=== PATIENT | male | born 1955 | race Caucasian/White ===

== ENCOUNTER 2016-07-12 14:18 | Emergency (ER) | payer OTHER ==
--- NOTE | 2016-07-12 15:38 | DIAGNOSTIC IMAGING REPORT ---
PROCEDURE: XR CHEST 1 VIEW INDICATION: SHORTNESS OF BREATH TECHNIQUE: Portable AP view (1455 hours). COMPARISON: None. FINDINGS: Allowing for overlying wires and electrodes, lungs are clear. Heart and mediastinum are normal. Thorax is normal. IMPRESSION: 1. Negative chest.
--- NOTE | 2016-07-12 17:16 | ED CLINICAL REPORT ---
Clinical Report - Physicians/Mid Levels [facility] [address] [place] [address] 07/12/2016 14:21 Patient: VENKAT ACEVES Time Seen: 14:43. Arrived- By private vehicle. Historian- patient. HISTORY OF PRESENT ILLNESS Chief Complaint: DYSPNEA, WHEEZING and HISTORY OF ASTHMA. This started about 1 week ago and is still present (worse since 2 days ago). It was gradual in onset and has been constant and waxing/waning. The dyspnea is described as moderate. The patient has had a cough. He has had moderate amounts of thick sputum (keller). He has had chest discomfort (several days ago - none recently). See nurses notes for current asthma threapy. Asthma triggers: allergies. Takes asthma medications. Similar symptoms previously: Many times. REVIEW OF SYSTEMS No chills, fever, sweats, calf pain or chest pain. No pedal edema or palpitations. All systems otherwise negative, except as recorded above. PAST HISTORY PCP - Macy (1st appointment next week). Problems: Staple Removal. Wound Check. Laceration. Lung Disease. URI. Fibula Fracture. Tibia Fracture. Tetanus Status. Back Pain. Chronic Back Pain. Alcohol Intoxication. Substance Abuse. Asthma. Environmental Allergies. Gastroesophageal Reflux. GERD. PTSD. Additional Surgeries: Appendectomy. Hernia Repair. Hiatal Hernia Repair. Medications: Nasal [place] Nasal. Albuterol Sulfate Inhalation. Zyrtec. Allergies: No Known Drug Allergy. SOCIAL HISTORY Former smoker, end date 2004. History of heavy drug use: marijuana. Residence: [place]. FAMILY HISTORY Family medical history is unknown due to foster care. ADDITIONAL NOTES The nursing notes have been reviewed. PHYSICAL EXAM Vital Signs: 07/12/2016 14:29 BP: 125/81. HR: 57. RR: 18. O2 saturation: 99%. Temp: 98.4 F. Pain level now: 2/10. Have been reviewed. Appearance: Alert. Eyes: Pupils equal, round and reactive to light. ENT: Pharynx normal. Uvula midline. Neck: Normal inspection. Neck supple. CVS: Normal heart rate and rhythm. Heart sounds normal. Respiratory: No respiratory distress. Decreased air movement. Expiratory mild bilateral wheezes diffusely. Abdomen: Soft and nontender. No organomegaly. Back: Normal inspection. Skin: Skin warm and dry. Normal skin color. Normal skin turgor. Extremities: Extremities exhibit normal ROM. No calf tenderness. No lower extremity edema. LABS, X-RAYS, AND EKG EKG: No acute process. Normal EKG. Rate: 57. EKG unchanged when compared with prior EKG. (05 Sep 2011). Chest X-ray: No acute disease. The X-rays were interpreted by the radiologist and contemporaneously by me. Laboratory Tests: UA-Culture if indicated: (MERNA: 07/12/2016 14:47) ( [facility] [place] 07/12/2016 15:26) Final results Test Result Flag Units (Reference) URINE COLOR YELLOW URINE APPEARANCE CLEAR URINE GLUCOSE NEGATIVE (NEGATIVE) URINE BILIRUBIN NEGATIVE (NEGATIVE) URINE KETONE NEGATIVE (NEGATIVE) URINE SPECIFIC GRAVITY 1.015 (1.010-1.030) URINE PH 6.0 (5.0-8.0) URINE PROTEIN NEGATIVE (NEGATIVE) URINE UROBILINOGEN 0.2 EU/dL (0.2-1.0) URINE NITRITE NEGATIVE (NEGATIVE) URINE BLOOD NEGATIVE (NEGATIVE) URINE LEUK ESTERASE NEGATIVE (NEGATIVE) URINE RBC NONE SEEN rbc/hpf (0-1) URINE WBC RARE wbc/hpf (0-1) URINE EPITHELIAL CELLS 0-1 EPI/hpf (0-5) URINE BACTERIA NONE SEEN (NONE SEEN) URINE COMMENT CULT NOT INDICATED URINE CULTURES ARE SET-UP BASED ON THE FOLLOWING CRITERIA:POSITIVE NITRITEPOSITIVE LEUKOCYTE ESTERASEGREATER THAN 10 WHITE BLOOD CELLSMODERATE (2+) OR GREATER BACTERIA CBC w Diff: (MERNA: 07/12/2016 14:47) ( [facility] [place] [place] 07/12/2016 15:14) Final results Test Result Flag Units (Reference) WHITE BLOOD COUNT 6.7 K/uL (4.5-11.5) RED BLOOD COUNT 4.66 M/uL (4.50-5.90) HEMOGLOBIN 14.5 gm/dL (13.5-17.5) HEMATOCRIT 43.7 % (41.0-53.0) MEAN CELL VOLUME 94 fL (80-100) MEAN CORPUSCULAR HGB 31 pg (26-34) MEAN CORPUSCULAR HGB CONC 33 g/dL (31-37) RED CELL DISTRIBUTION WIDTH 14.5 % (11.6-14.8) PLATELET COUNT 172 K/uL (150-400) NEUTROPHIL % 49.1 L % (50-75) LYMPH % 37.4 % (25-40) MONO % 8.5 % (3-14) EOSINOPHIL % 2.9 % (0-4) BASOPHIL % 2.1 H % (0-2) [id number]: (MERNA: 07/12/2016 14:47) ( [facility] 07/12/2016 15:41) Final results Test Result Flag Units (Reference) D-DIMER QUANTITATIVE < 0.27 L ug/mLFEU (0.27-0.52) The primary value of this quantitative assay relates toits negative predictive value (i.e. exclusion) of pulmonaryembolism/deep vein thrombosis/DIC.Elevated levels of d-dimer may also occur with:, age, cancer, inflammation, liver disease,post-op, infection, hematoma, coronary disease, peripheralarteriopathy, bleeding disorders and thrombolytic treatment.Results should be correlated with other clinical andradiological data.Testing Methodology: Latex Immunoassay BNP: (MERNA: 07/12/2016 14:47) ( [facility] 07/12/2016 15:36) Final results Test Result Flag Units (Reference) B-TYPE NATRIURETIC PEPTIDE 20.5 pg/ml (5-100) CMP: (MERNA: 07/12/2016 14:47) ( [facility] [place] [place] 07/12/2016 15:44) Final results Test Result Flag Units (Reference) GLUCOSE 93 mg/dL (70-110) BUN 9 mg/dL (7-18) CREATININE 0.8 mg/dL (0.6-1.3) Estimated GFR >60 mL/min Estimated GFR- >60 mL/min Note: Persistent reduction over 3 months in eGFR<60 mL/min/1.73 m2 defines CKD. Patients with eGFR values>=60 mL/min/1.73 m2 may also have CKD if evidence ofpersistent proteinuria. Additional information may be foundat [email or web address].org. SODIUM 143 mmol/L (136-145) POTASSIUM 4.1 mmol/L (3.5-5.1) CHLORIDE 108 H mmol/L (98-107) CARBON DIOXIDE 29 mmol/L (21-32) CALCIUM 8.3 L mg/dL (8.5-10.1) TOTAL PROTEIN 6.7 g/dL (6.4-8.2) ALBUMIN 3.3 g/dL (3.3-5.0) BILIRUBIN, TOTAL 0.4 mg/dL (0.0-1.0) ALKALINE PHOSPHATASE 84 U/L (46-116) AST (SGOT) 17 U/L (15-37) ALT (SGPT) 21 U/L (12-78) LIPASE 134 U/L (73-393) AMYLASE 122 H U/L (25-115) CPK 95 U/L (24-260) TROPONIN I <0.05 ng/mL (0.00-1.5) TROPONIN REFERENCE RANGE:<0.1 NEGATIVE0.1-1.5 INDETERMINANT>1.5 POSITIVE . PROGRESS AND PROCEDURES Course of Care: Symptoms better. Vital signs have been reviewed. Alert. No acute distress. Breath sounds normal. No respiratory distress. Normal heart rate and rhythm. Heart sounds normal. Abdomen soft and nontender. Patient/family counseled. Old medical records reviewed. Disposition: Discharged. Condition: stable. CLINICAL IMPRESSION Asthma with an acute exacerbation. INSTRUCTIONS Do not smoke (discontinue smoking marijuana as discussed). Warnings: Further evaluation is necessary. GENERAL WARNINGS: Return or contact your physician immediately if your condition worsens or changes unexpectedly, if not improving as expected, or if other problems arise. Your Current Medications: CONTINUE TAKING THE FOLLOWING MEDICATIONS: Albuterol Sulfate Inhalation. Nasal [place] Nasal. Zyrtec*. Prescription Medications: Prednisone 20 mg: take 3 orally every day for 5 days. Dispense fifteen (15). No refills. Understanding of the discharge instructions verbalized by patient. Follow-up with: Dirk Cavazos MD, [facility], [phone], [facility], [address] [facility]. [address], [place], [facility] Follow up in five days. Call for an appointment. (Electronically signed by Agustin Guzman MD 07/12/2016 17:47)
--- NOTE | 2016-07-12 17:16 | ED NURSING NOTES ---
Clinical Report - Nurses [facility] [place] [address] 07/12/2016 14:21 Patient: VENKAT ACEVES TRIAGE Triage time 14:29. Acuity: LEVEL 3. Chief Complaint: CHEST PAIN and DISCOMFORT and LEFT ARM PAIN, RIGHT ARM PAIN and NECK PAIN. Alert. No acute distress. SEPSIS SCREEN: Sepsis Screen: negative. Negative (no infection suspected/documented). NUNU COMA SCORE: [place] Coma Scale: 15- eyes open spontaneously (4); best verbal response- oriented x 4 (5); best motor response- obeys commands (6). --14:37 Inés Johnson R.N. 14:29 07/12/16. BP: 125/81 taken while sitting. HR: 57. RR: 18. O2 saturation: 99%. Temp: 98.4 F. Pain level now: 210. --14:37 Inés Johnson R.N. 14:29 07/12/16. BP: 125/81 taken while sitting. HR: 57. RR: 18. O2 saturation: 99%. Temp: 98.4 F. Pain level now: 10. --14:37 Inés Johnson R.N. Weight: 62.1 kg stated. Height/Length: 62 inches Per Patient. BMI: 25.1. --14:35 Inés Johnson R.N. Medications Albuterol Sulfate Inhalation. [facility]. --14:34 Inés Johnson R.N. Nasal [place] Nasal. --14:34 Inés Johnson R.N. Allergies No Known Drug Allergy. --14:34 Inés Johnson R.N. Medication/allergy information source: the patient. --14:37 Inés Johnson R.N. History Arrived by private vehicle. Historian: patient. Accompanied by friend. Primary physician (urgent care). This started today. He has had difficulty breathing, nausea and a cough. No sweating episodes. 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 PAST MEDICAL HX: Immunizations: status is unknown. SOCIAL HX: Smoker- current status unknown. Occasional alcohol use. History of drug use: marijuana. Recently used drugs today. FALL RISK ASSESSMENT: Fall risk assessment completed. No fall risk identified. NUTRITIONAL RISK ASSESSMENT: The nutritional risk assessment revealed no deficiencies. FUNCTIONAL ASSESSMENT: Functional assessment: no impairments noted. LEARNING NEEDS ASSESSMENT: The learning needs assessment revealed no barriers. SKIN INTEGRITY ASSESSMENT: Skin integrity risk assessment completed. No skin integrity risk identified. --14:37 Inés Johnson R.N. PROBLEMS: Staple Removal. Wound Check. Laceration. Lung Disease. URI. Fibula Fracture. Tibia Fracture. Tetanus Status. Back Pain. Chronic Back Pain. Alcohol Intoxication. Substance Abuse. Asthma. Environmental Allergies. Gastroesophageal Reflux. GERD. PTSD. --14:36 Inés Johnson R.N. COPD - Chronic Obstructive Pulmonary Disease [RuleOut]. --14:36 Inés Johnson R.N. ADDITIONAL SURGERIES: Appendectomy. Hernia Repair. Hiatal Hernia Repair. --14:36 Inés Johnson R.N. Interventions ID band on patient. To room. --14:37 Inés Johnson R.N. PHYSICAL ASSESSMENT Ambulatory to room. Patient gowned. GENERAL / NEURO / PSYCH: Alert. Oriented X 4. Appears anxious. HEENT: Mucous membranes are pink. RESPIRATORY: Respirations not labored. CVS: Pulses within normal limits. Capillary refill less than 2 seconds. GI / : Abdomen nontender. EXTREMITIES: No lower extremity edema. SKIN: Skin is warm and dry. Normal skin turgor. Skin is non-tender. --14:38 Inés Johnson R.N. GENERAL / NEURO / PSYCH: Alert. Oriented X 4. Appears in no acute distress. RESPIRATORY: Respirations not labored. Chest nontender. Breath sounds within normal limits. CVS: Cardiac rhythm: sinus rhythm; no ectopy noted. Pulses within normal limits. ( pt reports cp with exertion that has been ongoing x 1 week. pt reports hx of same "but this time it worried me" pt stood to void and reports cp with standing, upon settling back on gurney and while this RN placing line pt reported "see it's gone now that I sat down"). Capillary refill less than 2 seconds. GI / : Abdomen soft and nontender. EXTREMITIES: No lower extremity edema. SKIN: Skin is warm and dry. Skin is non-tender. --15:01 Radha Quintero R.N. 14:54 07/12/16. ( cxr at bedside). --15:04 Radha Quintero R.N. ( explaining poc for pts dispo home, pt reports improvement in symptoms, denies cp, speaks long full clear sentences, family/friend remains at bedside for drive home). GENERAL / NEURO / PSYCH: Alert. Oriented X 4. Appears in no acute distress. HEENT: Mucous membranes are pink. RESPIRATORY: Respirations not labored. Chest nontender. Breath sounds within normal limits. CVS: Normal sinus rhythm noted. Heart sounds within normal limits. Capillary refill less than 2 seconds. SKIN: Skin is warm and dry. --17:18 Radha Quintero R.N. NURSING PROGRESS NOTES monitoring analyst, pulse oximeter and NIBP monitor placed on patient; laboratory monitor- Lead II; monitor alarms on. Patient gowned. Head of bed elevated. Two patient identifiers checked. Call light placed in reach. Side rails up x 2. Bed placed in lowest position. Brakes of bed on. Patient ready for evaluation. --14:39 Inés Johnson R.N. EKG time: (14:34). EKG was performed by a ana and shown to the ED physician. --14:51 Bethany Evans 14:53 07/12/2016 Site #1 started via IV in the right hand with an 20g angiocath; one attempt. Blood drawn: rainbow set. Labeled in the presence of the patient and sent to the lab. Saline lock flushed with 10 mL saline. --15:03 Radha Quintero R.N. Oxygen administered by nasal cannula at 2 liters. --15:05 Radha Quintero R.N. Checked patient name and birthdate: patient confirmed. Patient verbalized understanding. Clean catch urine collected with return of yellow-colored clear urine; odor is normal; sample sent to lab for urinalysis. Specimen labeled in the presence of the patient. --15:06 Radha Quintero R.N. 15:15 07/12/2016 Aspirin PO Tablets 325 mg given. Allergies verified and confirmed 5 rights. --15:15 Radha Quintero R.N. 15:52 07/12/16. BP: 120/82. HR: 57. RR: 15. O2 saturation: 100%. Pain level now: 0/10. Additional comments: pt denies pain at this time. --15:55 Radha Quintero R.N. Cardiac rhythm: sinus bradycardia; (ventricular rate). Reassessment after oxygen administered (reports dec in cp/sob after O2, "that helps a lot, my pain is better and I breathe better"). He reports no complaints. Overall patient status is the same. ( RT at bedside giving tx). Two patient identifiers checked. Call light placed in reach. Side rails up x 2. Bed placed in lowest position. Brakes of bed on. --15:55 Radha Quintero R.N. 16:00 07/12/2016 Duoneb (Ipratropium-Albuterol) Neb TX Nebulizer 1 unit dose given. Given by the respiratory therapist. Allergies verified and confirmed 5 rights. Cirpiano Soto --16:00 Cipriano Soto Reassessment after ([facility]). He reports no complaints, he is calm and resting quietly and he has had no adverse reaction. Overall patient status is improved. RESPIRATORY: No respiratory distress present. No respiratory distress. CVS: Denies chest pain. SKIN: Skin is warm and dry. Skin color within normal limits. --17:20 Radha Quintero R.N. DISPOSITION / DISCHARGE 17:00 07/12/16. BP: 111/78. HR: 82. RR: 17. O2 saturation: 97% on nasal cannula at 1 liters/minute. Pain level now: 0/10. 15:52 07/12/16. BP: 120/82. HR: 57. RR: 15. O2 saturation: 100%. Pain level now: 0/10. Additional comments: pt denies pain at this time. 14:29 07/12/16. BP: 125/81 taken while sitting. HR: 57. RR: 18. O2 saturation: 99%. Temp: 98.4 F. Pain level now: 2/10. --17:35 Radha Quintero R.N. 16:44 07/12/16. BP: 119/63. HR: 71. RR: 18. O2 saturation: 96% on room air. Temp: 98.2 F. Pain level now: 0/10. --17:35 Radha Quintero R.N. Condition at departure: improved. No learning barriers present. Discharge instructions provided and reviewed with the patient and family. Reviewed need to stop smoking- provided smoking cessation counseling. Patient verbalized understanding. Written instructions provided in [employer]. The patient was discharged by the physician. He was discharged home and accompanied by family. He left the Emergency Department ambulatory, via private vehicle and (pt ambulated to lobby with steady gait). Family member driving. --17:35 Radha Quintero R.N. 17:11 07/12/2016 Aspirin PO Response: no adverse reaction. --17:36 Radha Quintero R.N. 17:12 07/12/2016 Nichelle Teresa [place] Response: no adverse reaction symptoms have improved the patient feels better. --17:37 Radha Quintero R.N. 17:26 07/12/2016 IV Saline Lock Drip IV Discontinued: upon discharge. Total amount infused: 0 mL. IV patency established. IV site checked: no pain, redness, or swelling. IV flushed thoroughly. --17:36 Radha Quintero R.N. 17:30 07/12/2016 Site #1 removed upon discharge. Bandaid applied. --17:30 Radha Quintero R.N. Locked/Released at 07/12/2016 19:40 by Inés Johnson R.N.
--- NOTE | 2016-07-12 17:16 | ED NURSING NOTES ---
Clinical Report - Nurses [facility] [place] [address] 07/12/2016 14:21 Patient: VENKAT ACEVES TRIAGE Triage time 14:29. Acuity: LEVEL 3. Chief Complaint: CHEST PAIN and DISCOMFORT and LEFT ARM PAIN, RIGHT ARM PAIN and NECK PAIN. Alert. No acute distress. SEPSIS SCREEN: Sepsis Screen: negative. Negative (no infection suspected/documented). NUNU COMA SCORE: [place] Coma Scale: 15- eyes open spontaneously (4); best verbal response- oriented x 4 (5); best motor response- obeys commands (6). --14:37 Inés Johnson R.N. 14:29 07/12/16. BP: 125/81 taken while sitting. HR: 57. RR: 18. O2 saturation: 99%. Temp: 98.4 F. Pain level now: 210. --14:37 Inés Johnson R.N. 14:29 07/12/16. BP: 125/81 taken while sitting. HR: 57. RR: 18. O2 saturation: 99%. Temp: 98.4 F. Pain level now: 10. --14:37 Inés Johnson R.N. Weight: 62.1 kg stated. Height/Length: 62 inches Per Patient. BMI: 25.1. --14:35 Inés Johnson R.N. Medications Albuterol Sulfate Inhalation. [facility]. --14:34 Inés Johnson R.N. Nasal [place] Nasal. --14:34 Inés Johnson R.N. Allergies No Known Drug Allergy. --14:34 Inés Johnson R.N. Medication/allergy information source: the patient. --14:37 Inés Johnson R.N. History Arrived by private vehicle. Historian: patient. Accompanied by friend. Primary physician (urgent care). This started today. He has had difficulty breathing, nausea and a cough. No sweating episodes. 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 PAST MEDICAL HX: Immunizations: status is unknown. SOCIAL HX: Smoker- current status unknown. Occasional alcohol use. History of drug use: marijuana. Recently used drugs today. FALL RISK ASSESSMENT: Fall risk assessment completed. No fall risk identified. NUTRITIONAL RISK ASSESSMENT: The nutritional risk assessment revealed no deficiencies. FUNCTIONAL ASSESSMENT: Functional assessment: no impairments noted. LEARNING NEEDS ASSESSMENT: The learning needs assessment revealed no barriers. SKIN INTEGRITY ASSESSMENT: Skin integrity risk assessment completed. No skin integrity risk identified. --14:37 Inés Johnson R.N. PROBLEMS: Staple Removal. Wound Check. Laceration. Lung Disease. URI. Fibula Fracture. Tibia Fracture. Tetanus Status. Back Pain. Chronic Back Pain. Alcohol Intoxication. Substance Abuse. Asthma. Environmental Allergies. Gastroesophageal Reflux. GERD. PTSD. --14:36 Inés Johnson R.N. COPD - Chronic Obstructive Pulmonary Disease [RuleOut]. --14:36 Inés Johnson R.N. ADDITIONAL SURGERIES: Appendectomy. Hernia Repair. Hiatal Hernia Repair. --14:36 Inés Johnson R.N. Interventions ID band on patient. To room. --14:37 Inés Johnson R.N. PHYSICAL ASSESSMENT Ambulatory to room. Patient gowned. GENERAL / NEURO / PSYCH: Alert. Oriented X 4. Appears anxious. HEENT: Mucous membranes are pink. RESPIRATORY: Respirations not labored. CVS: Pulses within normal limits. Capillary refill less than 2 seconds. GI / : Abdomen nontender. EXTREMITIES: No lower extremity edema. SKIN: Skin is warm and dry. Normal skin turgor. Skin is non-tender. --14:38 Inés Johnson R.N. GENERAL / NEURO / PSYCH: Alert. Oriented X 4. Appears in no acute distress. RESPIRATORY: Respirations not labored. Chest nontender. Breath sounds within normal limits. CVS: Cardiac rhythm: sinus rhythm; no ectopy noted. Pulses within normal limits. ( pt reports cp with exertion that has been ongoing x 1 week. pt reports hx of same "but this time it worried me" pt stood to void and reports cp with standing, upon settling back on gurney and while this RN placing line pt reported "see it's gone now that I sat down"). Capillary refill less than 2 seconds. GI / : Abdomen soft and nontender. EXTREMITIES: No lower extremity edema. SKIN: Skin is warm and dry. Skin is non-tender. --15:01 Radha Quintero R.N. 14:54 07/12/16. ( cxr at bedside). --15:04 Radha Quintero R.N. ( explaining poc for pts dispo home, pt reports improvement in symptoms, denies cp, speaks long full clear sentences, family/friend remains at bedside for drive home). GENERAL / NEURO / PSYCH: Alert. Oriented X 4. Appears in no acute distress. HEENT: Mucous membranes are pink. RESPIRATORY: Respirations not labored. Chest nontender. Breath sounds within normal limits. CVS: Normal sinus rhythm noted. Heart sounds within normal limits. Capillary refill less than 2 seconds. SKIN: Skin is warm and dry. --17:18 Radha Quintero R.N. NURSING PROGRESS NOTES slot router, pulse oximeter and NIBP monitor placed on patient; supervisor hand silvering- Lead II; monitor alarms on. Patient gowned. Head of bed elevated. Two patient identifiers checked. Call light placed in reach. Side rails up x 2. Bed placed in lowest position. Brakes of bed on. Patient ready for evaluation. --14:39 Inés Johnson R.N. EKG time: (14:34). EKG was performed by a ana and shown to the ED physician. --14:51 Bethany Evans 14:53 07/12/2016 Site #1 started via IV in the right hand with an 20g angiocath; one attempt. Blood drawn: rainbow set. Labeled in the presence of the patient and sent to the lab. Saline lock flushed with 10 mL saline. --15:03 Radha Quintero R.N. Oxygen administered by nasal cannula at 2 liters. --15:05 Radha Quintero R.N. Checked patient name and birthdate: patient confirmed. Patient verbalized understanding. Clean catch urine collected with return of yellow-colored clear urine; odor is normal; sample sent to lab for urinalysis. Specimen labeled in the presence of the patient. --15:06 Radha Quintero R.N. 15:15 07/12/2016 Aspirin PO Tablets 325 mg given. Allergies verified and confirmed 5 rights. --15:15 Radha Quintero R.N. 15:52 07/12/16. BP: 120/82. HR: 57. RR: 15. O2 saturation: 100%. Pain level now: 0/10. Additional comments: pt denies pain at this time. --15:55 Radha Quintero R.N. Cardiac rhythm: sinus bradycardia; (ventricular rate). Reassessment after oxygen administered (reports dec in cp/sob after O2, "that helps a lot, my pain is better and I breathe better"). He reports no complaints. Overall patient status is the same. ( RT at bedside giving tx). Two patient identifiers checked. Call light placed in reach. Side rails up x 2. Bed placed in lowest position. Brakes of bed on. --15:55 Radha Quintero R.N. 16:00 07/12/2016 Duoneb (Ipratropium-Albuterol) Neb TX Nebulizer 1 unit dose given. Given by the respiratory therapist. Allergies verified and confirmed 5 rights. Cipriano Soto --16:00 Cipriano Soto Reassessment after ([facility]). He reports no complaints, he is calm and resting quietly and he has had no adverse reaction. Overall patient status is improved. RESPIRATORY: No respiratory distress present. No respiratory distress. CVS: Denies chest pain. SKIN: Skin is warm and dry. Skin color within normal limits. --17:20 Radha Quintero R.N. DISPOSITION / DISCHARGE 17:00 07/12/16. BP: 111/78. HR: 82. RR: 17. O2 saturation: 97% on nasal cannula at 1 liters/minute. Pain level now: 0/10. 15:52 07/12/16. BP: 120/82. HR: 57. RR: 15. O2 saturation: 100%. Pain level now: 0/10. Additional comments: pt denies pain at this time. 14:29 07/12/16. BP: 125/81 taken while sitting. HR: 57. RR: 18. O2 saturation: 99%. Temp: 98.4 F. Pain level now: 2/10. --17:35 Radha Quintero R.N. 16:44 07/12/16. BP: 119/63. HR: 71. RR: 18. O2 saturation: 96% on room air. Temp: 98.2 F. Pain level now: 0/10. --17:35 Radha Quintero R.N. Condition at departure: improved. No learning barriers present. Discharge instructions provided and reviewed with the patient and family. Reviewed need to stop smoking- provided smoking cessation counseling. Patient verbalized understanding. Written instructions provided in Malawian. The patient was discharged by the physician. He was discharged home and accompanied by family. He left the Emergency Department ambulatory, via private vehicle and (pt ambulated to lobby with steady gait). Family member driving. --17:35 Radha Quintero R.N. 17:11 07/12/2016 Aspirin PO Response: no adverse reaction. --17:36 Radha Quintero R.N. 17:12 07/12/2016 Nichelle Teresa [place] Response: no adverse reaction symptoms have improved the patient feels better. --17:37 Radha Quintero R.N. 17:26 07/12/2016 IV Saline Lock Drip IV Discontinued: upon discharge. Total amount infused: 0 mL. IV patency established. IV site checked: no pain, redness, or swelling. IV flushed thoroughly. --17:36 Radha Quintero R.N. 17:30 07/12/2016 Site #1 removed upon discharge. Bandaid applied. --17:30 Radha Quintero R.N. Locked/Released at 07/12/2016 19:40 by Inés Johnson R.N.
--- NOTE | 2016-07-12 17:16 | ED CLINICAL REPORT ---
Clinical Report - Physicians/Mid Levels [facility] [address] [place] [address] 07/12/2016 14:21 Patient: VENKAT ACEVES Time Seen: 14:43. Arrived- By private vehicle. Historian- patient. HISTORY OF PRESENT ILLNESS Chief Complaint: DYSPNEA, WHEEZING and HISTORY OF ASTHMA. This started about 1 week ago and is still present (worse since 2 days ago). It was gradual in onset and has been constant and waxing/waning. The dyspnea is described as moderate. The patient has had a cough. He has had moderate amounts of thick sputum (keller). He has had chest discomfort (several days ago - none recently). See nurses notes for current asthma threapy. Asthma triggers: allergies. Takes asthma medications. Similar symptoms previously: Many times. REVIEW OF SYSTEMS No chills, fever, sweats, calf pain or chest pain. No pedal edema or palpitations. All systems otherwise negative, except as recorded above. PAST HISTORY PCP - Macy (1st appointment next week). Problems: Staple Removal. Wound Check. Laceration. Lung Disease. URI. Fibula Fracture. Tibia Fracture. Tetanus Status. Back Pain. Chronic Back Pain. Alcohol Intoxication. Substance Abuse. Asthma. Environmental Allergies. Gastroesophageal Reflux. GERD. PTSD. Additional Surgeries: Appendectomy. Hernia Repair. Hiatal Hernia Repair. Medications: Nasal Lula Nasal. Albuterol Sulfate Inhalation. Zyrtec. Allergies: No Known Drug Allergy. SOCIAL HISTORY Former smoker, end date 2004. History of heavy drug use: marijuana. Residence: [place]. FAMILY HISTORY Family medical history is unknown due to foster care. ADDITIONAL NOTES The nursing notes have been reviewed. PHYSICAL EXAM Vital Signs: 07/12/2016 14:29 BP: 125/81. HR: 57. RR: 18. O2 saturation: 99%. Temp: 98.4 F. Pain level now: 2/10. Have been reviewed. Appearance: Alert. Eyes: Pupils equal, round and reactive to light. ENT: Pharynx normal. Uvula midline. Neck: Normal inspection. Neck supple. CVS: Normal heart rate and rhythm. Heart sounds normal. Respiratory: No respiratory distress. Decreased air movement. Expiratory mild bilateral wheezes diffusely. Abdomen: Soft and nontender. No organomegaly. Back: Normal inspection. Skin: Skin warm and dry. Normal skin color. Normal skin turgor. Extremities: Extremities exhibit normal ROM. No calf tenderness. No lower extremity edema. LABS, X-RAYS, AND EKG EKG: No acute process. Normal EKG. Rate: 57. EKG unchanged when compared with prior EKG. (05 Sep 2011). Chest X-ray: No acute disease. The X-rays were interpreted by the radiologist and contemporaneously by me. Laboratory Tests: UA-Culture if indicated: (MERNA: 07/12/2016 14:47) ( [facility] 07/12/2016 15:26) Final results Test Result Flag Units (Reference) URINE COLOR YELLOW URINE APPEARANCE CLEAR URINE GLUCOSE NEGATIVE (NEGATIVE) URINE BILIRUBIN NEGATIVE (NEGATIVE) URINE KETONE NEGATIVE (NEGATIVE) URINE SPECIFIC GRAVITY 1.015 (1.010-1.030) URINE PH 6.0 (5.0-8.0) URINE PROTEIN NEGATIVE (NEGATIVE) URINE UROBILINOGEN 0.2 EU/dL (0.2-1.0) URINE NITRITE NEGATIVE (NEGATIVE) URINE BLOOD NEGATIVE (NEGATIVE) URINE LEUK ESTERASE NEGATIVE (NEGATIVE) URINE RBC NONE SEEN rbc/hpf (0-1) URINE WBC RARE wbc/hpf (0-1) URINE EPITHELIAL CELLS 0-1 EPI/hpf (0-5) URINE BACTERIA NONE SEEN (NONE SEEN) URINE COMMENT CULT NOT INDICATED URINE CULTURES ARE SET-UP BASED ON THE FOLLOWING CRITERIA:POSITIVE NITRITEPOSITIVE LEUKOCYTE ESTERASEGREATER THAN 10 WHITE BLOOD CELLSMODERATE (2+) OR GREATER BACTERIA CBC w Diff: (MERNA: 07/12/2016 14:47) ( [facility] 07/12/2016 15:14) Final results Test Result Flag Units (Reference) WHITE BLOOD COUNT 6.7 K/uL (4.5-11.5) RED BLOOD COUNT 4.66 M/uL (4.50-5.90) HEMOGLOBIN 14.5 gm/dL (13.5-17.5) HEMATOCRIT 43.7 % (41.0-53.0) MEAN CELL VOLUME 94 fL (80-100) MEAN CORPUSCULAR HGB 31 pg (26-34) MEAN CORPUSCULAR HGB CONC 33 g/dL (31-37) RED CELL DISTRIBUTION WIDTH 14.5 % (11.6-14.8) PLATELET COUNT 172 K/uL (150-400) NEUTROPHIL % 49.1 L % (50-75) LYMPH % 37.4 % (25-40) MONO % 8.5 % (3-14) EOSINOPHIL % 2.9 % (0-4) BASOPHIL % 2.1 H % (0-2) [id number]: (MERNA: 07/12/2016 14:47) ( [facility] 07/12/2016 15:41) Final results Test Result Flag Units (Reference) D-DIMER QUANTITATIVE < 0.27 L ug/mLFEU (0.27-0.52) The primary value of this quantitative assay relates toits negative predictive value (i.e. exclusion) of pulmonaryembolism/deep vein thrombosis/DIC.Elevated levels of d-dimer may also occur with:, age, cancer, inflammation, liver disease,post-op, infection, hematoma, coronary disease, peripheralarteriopathy, bleeding disorders and thrombolytic treatment.Results should be correlated with other clinical andradiological data.Testing Methodology: Latex Immunoassay BNP: (MERNA: 07/12/2016 14:47) ( [facility] 07/12/2016 15:36) Final results Test Result Flag Units (Reference) B-TYPE NATRIURETIC PEPTIDE 20.5 pg/ml (5-100) CMP: (MERNA: 07/12/2016 14:47) ( [facility] 07/12/2016 15:44) Final results Test Result Flag Units (Reference) GLUCOSE 93 mg/dL (70-110) BUN 9 mg/dL (7-18) CREATININE 0.8 mg/dL (0.6-1.3) Estimated GFR >60 mL/min Estimated GFR- >60 mL/min Note: Persistent reduction over 3 months in eGFR<60 mL/min/1.73 m2 defines CKD. Patients with eGFR values>=60 mL/min/1.73 m2 may also have CKD if evidence ofpersistent proteinuria. Additional information may be foundat www.kidney.org. SODIUM 143 mmol/L (136-145) POTASSIUM 4.1 mmol/L (3.5-5.1) CHLORIDE 108 H mmol/L (98-107) CARBON DIOXIDE 29 mmol/L (21-32) CALCIUM 8.3 L mg/dL (8.5-10.1) TOTAL PROTEIN 6.7 g/dL (6.4-8.2) ALBUMIN 3.3 g/dL (3.3-5.0) BILIRUBIN, TOTAL 0.4 mg/dL (0.0-1.0) ALKALINE PHOSPHATASE 84 U/L (46-116) AST (SGOT) 17 U/L (15-37) ALT (SGPT) 21 U/L (12-78) LIPASE 134 U/L (73-393) AMYLASE 122 H U/L (25-115) CPK 95 U/L (24-260) TROPONIN I <0.05 ng/mL (0.00-1.5) TROPONIN REFERENCE RANGE:<0.1 NEGATIVE0.1-1.5 INDETERMINANT>1.5 POSITIVE . PROGRESS AND PROCEDURES Course of Care: Symptoms better. Vital signs have been reviewed. Alert. No acute distress. Breath sounds normal. No respiratory distress. Normal heart rate and rhythm. Heart sounds normal. Abdomen soft and nontender. Patient/family counseled. Old medical records reviewed. Disposition: Discharged. Condition: stable. CLINICAL IMPRESSION Asthma with an acute exacerbation. INSTRUCTIONS Do not smoke (discontinue smoking marijuana as discussed). Warnings: Further evaluation is necessary. GENERAL WARNINGS: Return or contact your physician immediately if your condition worsens or changes unexpectedly, if not improving as expected, or if other problems arise. Your Current Medications: CONTINUE TAKING THE FOLLOWING MEDICATIONS: Albuterol Sulfate Inhalation. Nasal Lula Nasal. Zyrtec*. Prescription Medications: Prednisone 20 mg: take 3 orally every day for 5 days. Dispense fifteen (15). No refills. Understanding of the discharge instructions verbalized by patient. Follow-up with: Dirk Cavazos MD, [facility], [phone], [facility], [address] [facility]. [address], [place], [facility] Follow up in five days. Call for an appointment. (Electronically signed by Agustin Guzman MD 07/12/2016 17:47)
--- NOTE | 2016-07-12 17:16 | ED ORDER SUMMARY ---
..... Patient: VENKAT ACEVES OrderSheet [facility] VisitID: [id number] [place] [address] 60y, M Registration Date/Time: 07/12/2016 ORDER SHEET Weight: 62.1 kg (stated) Allergies: No Known Drug Allergy GENERAL ORDERS: Chest 1V Urgent (14:39 07/12/2016 Darryl NELSON) (Ack 14:50 Radha) (15:07 KPage-Kuchan R.N.) Six Sigma Black Belt Engineer (Continuous) (14:39 07/12/2016 Darryl NELSON) (14:39 SRoberts R.N.) CBC w Diff Urgent (14:39 07/12/2016 Darryl NELSON) (Ack 14:50 Radha) (15:07 KPage-Kuchan R.N.) CMP Urgent (14:39 07/12/2016 Darryl NELSON) (Ack 14:50 Radha) (15:07 KPage-Kuchan R.N.) UA-Culture if indicated Urgent (14:39 07/12/2016 Darryl NELSON) (Ack 14:50 Radha) (15:07 KPage-Bonychan R.N.) Amylase Urgent (14:39 07/12/2016 Darryl NELSON) (Ack 14:50 Radha) (15:07 KPage-Kuchan R.N.) Lipase Urgent (14:39 07/12/2016 Darryl NELSON) (Ack 14:50 Radha) (15:07 KPage-Kuchan R.N.) CPK Urgent (14:39 07/12/2016 Darryl NELSON) (Ack 14:50 Radha) (15:07 KPage-Kuchan R.N.) Troponin-I Urgent (14:39 07/12/2016 Darryl NELSON) (Ack 14:50 Radha) (15:07 KPage-Kuchan R.N.) BNP Urgent (14:39 07/12/2016 Darryl NELSON) (Ack 14:50 Radha) (15:07 KPage-Kuchan R.N.) D-Dimer Urgent (14:39 07/12/2016 Darryl NELSON) (Ack 14:50 RKaruga) (15:07 KPage-Kuchan R.N.) Oxygen (2 L/min) (NC) (14:39 07/12/2016 Darryl NELSON) (14:39 SRoberts R.N.) Pulse oximeter (14:39 07/12/2016 Darryl NELSON) (14:39 SRoberts R.N.) EKG - ER Stat (14:39 07/12/2016 Darryl NELSON) (14:44 Radha) MEDICATION ORDERS: Aspirin PO 325 mg (NOW) (14:39 07/12/2016 Darryl NELSON) (Ack 15:07 KPage-Niko R.N.) (15:15 KPage-Nikkin R.N.) DuoNeb Neb Tx 1 unit dose (NOW) (15:46 07/12/2016 Darryl NELSON) (16:00 JZiglar) IV FLUIDS: IV Saline Lock (14:39 07/12/2016 Darryl NELSON) (Ack 15:07 KPacherelle-Niko R.N.) (15:15 KPacherelle-Bonychan R.N.) ORDER SHEET NOTES: [Electronically signed by Agustin Guzman MD (17:47 07/12/2016)] [Electronically signed by Inés Johnson R.N. (19:40 07/12/2016)] [Electronically locked/signed by Inés Johnson R.N. (19:40 07/12/2016)]
--- NOTE | 2016-07-12 17:16 | ED ORDER SUMMARY ---
..... Patient: VENKAT ACEVES OrderSheet [facility] VisitID: [id number] [place] [address] 60y, M Registration Date/Time: 07/12/2016 ORDER SHEET Weight: 62.1 kg (stated) Allergies: No Known Drug Allergy GENERAL ORDERS: Chest 1V Urgent (14:39 07/12/2016 Darryl NELSON) (Ack 14:50 Radha) (15:07 KPage-Kuchan R.N.) Apple Picker (Continuous) (14:39 07/12/2016 Darryl NELSON) (14:39 SRoberts R.N.) CBC w Diff Urgent (14:39 07/12/2016 Darryl NELSON) (Ack 14:50 Radha) (15:07 KPage-Kuchan R.N.) CMP Urgent (14:39 07/12/2016 Darryl NELSON) (Ack 14:50 Radha) (15:07 KPage-Kuchan R.N.) UA-Culture if indicated Urgent (14:39 07/12/2016 Darryl NELSON) (Ack 14:50 Radha) (15:07 KPage-Bonychan R.N.) Amylase Urgent (14:39 07/12/2016 Darryl NELSON) (Ack 14:50 Radha) (15:07 KPage-Kuchan R.N.) Lipase Urgent (14:39 07/12/2016 Darryl NELSON) (Ack 14:50 Radha) (15:07 KPage-Kuchan R.N.) CPK Urgent (14:39 07/12/2016 Darryl NELSON) (Ack 14:50 Radha) (15:07 KPage-Kuchan R.N.) Troponin-I Urgent (14:39 07/12/2016 Darryl NELSON) (Ack 14:50 Radha) (15:07 KPage-Kuchan R.N.) BNP Urgent (14:39 07/12/2016 Darryl NELSON) (Ack 14:50 Radha) (15:07 KPage-Kuchan R.N.) D-Dimer Urgent (14:39 07/12/2016 Darryl NELSON) (Ack 14:50 RKaruga) (15:07 KPage-Kuchan R.N.) Oxygen (2 L/min) (NC) (14:39 07/12/2016 Darryl NELSON) (14:39 SRoberts R.N.) Pulse oximeter (14:39 07/12/2016 Darryl NELSON) (14:39 SRoberts R.N.) EKG - ER Stat (14:39 07/12/2016 Darryl NELSON) (14:44 Radha) MEDICATION ORDERS: Aspirin PO 325 mg (NOW) (14:39 07/12/2016 Darryl NELSON) (Ack 15:07 KPage-Niko R.N.) (15:15 KPage-Nikkin R.N.) DuoNeb Neb Tx 1 unit dose (NOW) (15:46 07/12/2016 Darryl NELSON) (16:00 JZiglar) IV FLUIDS: IV Saline Lock (14:39 07/12/2016 Darryl NELSON) (Ack 15:07 KPacherelle-Niko R.N.) (15:15 KPacherelle-Bonychan R.N.) ORDER SHEET NOTES: [Electronically signed by Agustin Guzman MD (17:47 07/12/2016)] [Electronically signed by Inés Johnson R.N. (19:40 07/12/2016)] [Electronically locked/signed by Inés Johnson R.N. (19:40 07/12/2016)]
--- NOTE | 2016-07-12 19:40 | ED MAR SUMMARY ---
..... Medication Administration Record [facility] [address] [place] [address] Patient: VENKAT ACEVES Visit ID: [id number] 60y, M Weight: 62.1 kg Height/Length: 62 in BMI: 25.1 ALLERGIES: No Known Drug Allergy Given 15:15 07/12/2016 Radha Quintero R.N. Medication Administered: ASPIRIN [PO], Dose: 325 mg Tablets PO. Medication Ordered: Aspirin PO 325 mg (NOW). Given 16:00 07/12/2016 Cipriano Soto, Medication Administered: DUONEB [NEB TX] (IPRATROPIUM-ALBUTEROL), Dose: 1 unit dose Nebulizer Neb TX. Medication Ordered: DuoNeb Neb Tx 1 unit dose (NOW).
--- NOTE | 2016-07-12 19:40 | ED DISCHARGE INSTRUCTIONS ---
Patient: VENKAT ACEVES General Instructions [facility] VisitID: [id number] [place] [address] 60y, M Registration Date/Time: 07/12/2016 Asthma with an acute exacerbation. INSTRUCTIONS Do not smoke (discontinue smoking marijuana as discussed). Warnings: Further evaluation is necessary. GENERAL WARNINGS: Return or contact your physician immediately if your condition worsens or changes unexpectedly, if not improving as expected, or if other problems arise. Your Current Medications: CONTINUE TAKING THE FOLLOWING MEDICATIONS: Albuterol Sulfate Inhalation. Nasal [place] Nasal. Zyrtec*. Prescription Medications: Prednisone 20 mg: take 3 orally every day for 5 days. Dispense fifteen (15). No refills. Understanding of the discharge instructions verbalized by patient. Follow-up with: Dirk Cavazos MD, [facility], [phone], [facility], [address] [place] [address] [address] [place] [address] Follow up in five days. Call for an appointment. ADDITIONAL INFORMATION Asthma [Adult] Asthma is a disease where the small air passages within the lung go into spasm and restrict the flow of air. Inflammation and swelling of the airways cause further restriction. During an acute asthma attack, these factors cause difficulty breathing, wheezing, cough and chest tightness. An asthma attack can be triggered by many things. Common triggers include the common cold, bronchitis, pneumonia, irritants such as smoke or pullutants in the air, emotional upset and heavy exercise. Inmany adults with asthma, allergies todust, mold, pollen and animal dander can cause an asthma attack. Skipping doses of daily asthma medicine can also bring on an asthma attack. Asthma can be controlled with proper medicines and decreased exposure to known allergens. Home Care: Take prescribed medicine exactly at the times advised. If you have a hand-held inhaler or aerosol breathing medicine, do not use it more than once every four hours, unless told to do so. (If you need this medicine more than every four hours, you may need to return to the Emergency Room.) If prescribed an antibiotic or prednisone, take all of the medicine even if you are feeling better after a few days. Do not smoke. Avoid being exposed to the smoke of others. Some persons with asthma have worsening of their symptoms when they take aspirin and non-steroidal medicines like ibuprofen (Motrin, Advil) and naproxen (Aleve, Naprosyn). Talk to your doctor if you think this may apply to you. Acetaminophen (Tylenol)should be safe to use. Follow Up with your doctor, or as advised by our staff. Always bring all of your current medicines with you for your doctor to see. If you do not already have one, talk to your doctor about developing a personalized "Asthma Action Plan." [NOTE: A pneumococcal vaccine and yearly flu shot (every fall) are recommended. Ask your doctor about this.] Get Prompt Medical Attention if any of the following occur: Increased wheezing or shortness of breath Need to use your inhalers more often than usual without relief Fever of 100.4F (38C) or higher, or as directed by your healthcare provider Coughing up lots of dark-colored or bloody sputum (mucus) Chest pain with each breath You do not start to improve within 24 hours Call 911 If Any Of The Following Occur : Trouble walking or talking because of shortness of breath If you use a peak flow meter andyou are still in the red zone (less than 50 percent) 15 minutes after using inhaler medication Lips or fingernails turning smith or blue Prednisone Oral tablet What is this medicine? PREDNISONE (PRED ni sone) is a corticosteroid. It is commonly used to treat inflammation of the skin, joints, lungs, and other organs. Common conditions treated include asthma, allergies, and arthritis. It is also used for other conditions, such as blood disorders and diseases of the adrenal glands. How should I use this medicine? Take this medicine by mouth with a glass of water. Follow the directions on the prescription label. Take this medicine with food. If you are taking this medicine once a day, take it in the morning. Do not take more medicine than you are told to take. Do not suddenly stop taking your medicine because you may develop a severe reaction. Your doctor will tell you how much medicine to take. If your doctor wants you to stop the medicine, the dose may be slowly lowered over time to avoid any side effects. Talk to your decoration checker regarding the use of this medicine in children. Special care may be needed. What side effects may I notice from receiving this medicine? Side effects that you should report to your doctor or health critical care unit nurse as soon as possible: allergic reactions like skin rash, itching or hives, swelling of the face, lips, or tongue changes in emotions or moods changes in vision depressed mood eye pain fever or chills, cough, sore throat, pain or difficulty passing urine increased thirst swelling of ankles, feet Side effects that usually do not require medical attention (report to your doctor or health critical care unit nurse if they continue or are bothersome): confusion, excitement, restlessness headache nausea, vomiting skin problems, acne, thin and shiny skin trouble sleeping weight gain What may interact with this medicine? Do not take this medicine with any of the following medications: metyrapone mifepristone This medicine may also interact with the following medications: aminoglutethimide amphotericin B aspirin and aspirin-like medicines barbiturates certain medicines for diabetes, like glipizide or glyburide cholestyramine cholinesterase inhibitors cyclosporine digoxin diuretics ephedrine female hormones, like estrogens and control pills isoniazid ketoconazole NSAIDS, medicines for pain and inflammation, like ibuprofen or naproxen phenytoin rifampin toxoids vaccines warfarin What if I miss a dose? If you miss a dose, take it as soon as you can. If it is almost time for your next dose, talk to your doctor or health critical care unit nurse. You may need to miss a dose or take an extra dose. Do not take double or extra doses without advice. Where should I keep my medicine? Keep out of the reach of children. Store at room temperature between 15 and 30 degrees C (59 and 86 degrees F). Protect from light. Keep container tightly closed. Throw away any unused medicine after the expiration date. What should I tell my health care provider before I take this medicine? They need to know if you have any of these conditions: Westminster's syndrome diabetes glaucoma heart disease high blood pressure infection (especially a virus infection such as chickenpox, cold sores, or herpes) kidney disease liver disease mental illness myasthenia gravis osteoporosis seizures stomach or intestine problems thyroid disease an unusual or allergic reaction to lactose, prednisone, other medicines, foods, dyes, or preservatives or trying to get breast-feeding What should I watch for while using this medicine? Visit your doctor or health critical care unit nurse for regular checks on your progress. If you are taking this medicine over a prolonged period, carry an identification card with your name and address, the type and dose of your medicine, and your doctor's name and address. This medicine may increase your risk of getting an infection. Tell your doctor or health critical care unit nurse if you are around anyone with measles or chickenpox, or if you develop sores or blisters that do not heal properly. If you are going to have surgery, tell your doctor or health critical care unit nurse that you have taken this medicine within the last twelve months. Ask your doctor or health critical care unit nurse about your diet. You may need to lower the amount of salt you eat. This medicine may affect blood sugar levels. If you have diabetes, check with your doctor or health critical care unit nurse before you change your diet or the dose of your diabetic medicine. You have been given the following additional information: Asthma, Acute (Adult) Prednisone Oral tablet (Electronically signed by Agustin Guzman MD 07/12/2016 17:47)
--- NOTE | 2016-07-12 19:40 | ED MAR SUMMARY ---
..... Medication Administration Record [facility] [address] [place] [address] Patient: VENKAT ACEVES Visit ID: [id number] 60y, M Weight: 62.1 kg Height/Length: 62 in BMI: 25.1 ALLERGIES: No Known Drug Allergy Given 15:15 07/12/2016 Radha Quintero R.N. Medication Administered: ASPIRIN [PO], Dose: 325 mg Tablets PO. Medication Ordered: Aspirin PO 325 mg (NOW). Given 16:00 07/12/2016 Cipriano Soto, Medication Administered: DUONEB [NEB TX] (IPRATROPIUM-ALBUTEROL), Dose: 1 unit dose Nebulizer Neb TX. Medication Ordered: DuoNeb Neb Tx 1 unit dose (NOW).
--- NOTE | 2016-07-12 19:40 | ED MED RECONCILIATION SUMMARY ---
Patient: VENKAT ACEVES Medication Reconciliation Report [facility] VisitID: [id number] [address] [place] [address] 60y, M Registration Date/Time: 07/12/2016 Weight: 62.1 kg Height/Length: 62 in. BMI: 25.1 ALLERGIES: No Known Drug Allergy The patient's Home Medications are listed below: CONTINUE TAKING THE FOLLOWING MEDICATIONS: Albuterol Sulfate Inhalation Nasal [place] Nasal Zyrtec The source(s) of the original Home Medication information: patient The following Medications were given to the patient in the Emergency Department: Aspirin [PO] PO 325 mg, administered: 07/12/2016 3:15:00 PM Duoneb [Neb Tx] Neb TX 1 unit dose, administered: 07/12/2016 4:00:00 PM The following Medications were prescribed to the patient: Prednisone 20 mg: take 3 orally every day for 5 days. Dispense fifteen (15). No refills. -- Agustin Guzman MD
--- NOTE | 2016-07-12 19:40 | ED MED RECONCILIATION SUMMARY ---
Patient: VENKAT ACEVES Medication Reconciliation Report [facility] VisitID: [id number] [address] [place] [address] 60y, M Registration Date/Time: 07/12/2016 Weight: 62.1 kg Height/Length: 62 in. BMI: 25.1 ALLERGIES: No Known Drug Allergy The patient's Home Medications are listed below: CONTINUE TAKING THE FOLLOWING MEDICATIONS: Albuterol Sulfate Inhalation Nasal [place] Nasal Zyrtec The source(s) of the original Home Medication information: patient The following Medications were given to the patient in the Emergency Department: Aspirin [PO] PO 325 mg, administered: 07/12/2016 3:15:00 PM Duoneb [Neb Tx] Neb [place] 1 unit dose, administered: 07/12/2016 4:00:00 PM The following Medications were prescribed to the patient: Prednisone 20 mg: take 3 orally every day for 5 days. Dispense fifteen (15). No refills. -- Agustin Guzman MD
--- NOTE | 2016-07-12 19:40 | ED DISCHARGE INSTRUCTIONS ---
Patient: VENKAT ACEVES General Instructions [facility] VisitID: [id number] [place] [address] 60y, M Registration Date/Time: 07/12/2016 Asthma with an acute exacerbation. INSTRUCTIONS Do not smoke (discontinue smoking marijuana as discussed). Warnings: Further evaluation is necessary. GENERAL WARNINGS: Return or contact your physician immediately if your condition worsens or changes unexpectedly, if not improving as expected, or if other problems arise. Your Current Medications: CONTINUE TAKING THE FOLLOWING MEDICATIONS: Albuterol Sulfate Inhalation. Nasal [place] Nasal. Zyrtec*. Prescription Medications: Prednisone 20 mg: take 3 orally every day for 5 days. Dispense fifteen (15). No refills. Understanding of the discharge instructions verbalized by patient. Follow-up with: Dirk Cavazos MD, [facility], [phone], [facility], [address] [place] [address] [address] [place] [address] Follow up in five days. Call for an appointment. ADDITIONAL INFORMATION Asthma [Adult] Asthma is a disease where the small air passages within the lung go into spasm and restrict the flow of air. Inflammation and swelling of the airways cause further restriction. During an acute asthma attack, these factors cause difficulty breathing, wheezing, cough and chest tightness. An asthma attack can be triggered by many things. Common triggers include the common cold, bronchitis, pneumonia, irritants such as smoke or pullutants in the air, emotional upset and heavy exercise. Inmany adults with asthma, allergies todust, mold, pollen and animal dander can cause an asthma attack. Skipping doses of daily asthma medicine can also bring on an asthma attack. Asthma can be controlled with proper medicines and decreased exposure to known allergens. Home Care: Take prescribed medicine exactly at the times advised. If you have a hand-held inhaler or aerosol breathing medicine, do not use it more than once every four hours, unless told to do so. (If you need this medicine more than every four hours, you may need to return to the Emergency Room.) If prescribed an antibiotic or prednisone, take all of the medicine even if you are feeling better after a few days. Do not smoke. Avoid being exposed to the smoke of others. Some persons with asthma have worsening of their symptoms when they take aspirin and non-steroidal medicines like ibuprofen (Motrin, Advil) and naproxen (Aleve, Naprosyn). Talk to your doctor if you think this may apply to you. Acetaminophen (Tylenol)should be safe to use. Follow Up with your doctor, or as advised by our staff. Always bring all of your current medicines with you for your doctor to see. If you do not already have one, talk to your doctor about developing a personalized "Asthma Action Plan." [NOTE: A pneumococcal vaccine and yearly flu shot (every fall) are recommended. Ask your doctor about this.] Get Prompt Medical Attention if any of the following occur: Increased wheezing or shortness of breath Need to use your inhalers more often than usual without relief Fever of 100.4F (38C) or higher, or as directed by your healthcare provider Coughing up lots of dark-colored or bloody sputum (mucus) Chest pain with each breath You do not start to improve within 24 hours Call 911 If Any Of The Following Occur : Trouble walking or talking because of shortness of breath If you use a peak flow meter andyou are still in the red zone (less than 50 percent) 15 minutes after using inhaler medication Lips or fingernails turning smith or blue Prednisone Oral tablet What is this medicine? PREDNISONE (PRED ni sone) is a corticosteroid. It is commonly used to treat inflammation of the skin, joints, lungs, and other organs. Common conditions treated include asthma, allergies, and arthritis. It is also used for other conditions, such as blood disorders and diseases of the adrenal glands. How should I use this medicine? Take this medicine by mouth with a glass of water. Follow the directions on the prescription label. Take this medicine with food. If you are taking this medicine once a day, take it in the morning. Do not take more medicine than you are told to take. Do not suddenly stop taking your medicine because you may develop a severe reaction. Your doctor will tell you how much medicine to take. If your doctor wants you to stop the medicine, the dose may be slowly lowered over time to avoid any side effects. Talk to your marketing services manager regarding the use of this medicine in children. Special care may be needed. What side effects may I notice from receiving this medicine? Side effects that you should report to your doctor or health home care associate as soon as possible: allergic reactions like skin rash, itching or hives, swelling of the face, lips, or tongue changes in emotions or moods changes in vision depressed mood eye pain fever or chills, cough, sore throat, pain or difficulty passing urine increased thirst swelling of ankles, feet Side effects that usually do not require medical attention (report to your doctor or health home care associate if they continue or are bothersome): confusion, excitement, restlessness headache nausea, vomiting skin problems, acne, thin and shiny skin trouble sleeping weight gain What may interact with this medicine? Do not take this medicine with any of the following medications: metyrapone mifepristone This medicine may also interact with the following medications: aminoglutethimide amphotericin B aspirin and aspirin-like medicines barbiturates certain medicines for diabetes, like glipizide or glyburide cholestyramine cholinesterase inhibitors cyclosporine digoxin diuretics ephedrine female hormones, like estrogens and control pills isoniazid ketoconazole NSAIDS, medicines for pain and inflammation, like ibuprofen or naproxen phenytoin rifampin toxoids vaccines warfarin What if I miss a dose? If you miss a dose, take it as soon as you can. If it is almost time for your next dose, talk to your doctor or health home care associate. You may need to miss a dose or take an extra dose. Do not take double or extra doses without advice. Where should I keep my medicine? Keep out of the reach of children. Store at room temperature between 15 and 30 degrees C (59 and 86 degrees F). Protect from light. Keep container tightly closed. Throw away any unused medicine after the expiration date. What should I tell my health care provider before I take this medicine? They need to know if you have any of these conditions: Tyrone's syndrome diabetes glaucoma heart disease high blood pressure infection (especially a virus infection such as chickenpox, cold sores, or herpes) kidney disease liver disease mental illness myasthenia gravis osteoporosis seizures stomach or intestine problems thyroid disease an unusual or allergic reaction to lactose, prednisone, other medicines, foods, dyes, or preservatives or trying to get breast-feeding What should I watch for while using this medicine? Visit your doctor or health home care associate for regular checks on your progress. If you are taking this medicine over a prolonged period, carry an identification card with your name and address, the type and dose of your medicine, and your doctor's name and address. This medicine may increase your risk of getting an infection. Tell your doctor or health home care associate if you are around anyone with measles or chickenpox, or if you develop sores or blisters that do not heal properly. If you are going to have surgery, tell your doctor or health home care associate that you have taken this medicine within the last twelve months. Ask your doctor or health home care associate about your diet. You may need to lower the amount of salt you eat. This medicine may affect blood sugar levels. If you have diabetes, check with your doctor or health home care associate before you change your diet or the dose of your diabetic medicine. You have been given the following additional information: Asthma, Acute (Adult) Prednisone Oral tablet (Electronically signed by Agustin Guzman MD 07/12/2016 17:47)
== END 2016-07-12 17:29 | disposition home or self-care (01) ==
LOC: ED SRH 14:18
DX: J45.901 Unspecified asthma with (acute) exacerbation (principal); Z79.899 Other long term (current) drug therapy; Z87.891 Personal history of nicotine dependence
CPT/HCPCS: 90004; 90100; 90616; 91320; 91556; 92235; 92530; 92610; 95059